=== PATIENT | male | born 1995 | race Caucasian/White ===

== ENCOUNTER 2018-12-30 00:32 | Emergency (ER) | payer BC, OTHER ==
[2018-12-30] MEDS ORDERED: Lidocaine 1% 10 ML MDV INJECT ONE (00:58)
[2018-12-30] MEDS ORDERED: Diphtheria,Pertussis(Acell),Tetanus Vaccine 0.5 ML Syringe IM ONE (00:58)
--- NOTE | 2018-12-30 01:05 | EDM.PDOC ---
ED HPI GENERAL MEDICAL PROBLEM - General Chief Complaint: Laceration Stated Complaint: left finger laceration Time Seen by Provider: 12/30/18 00:54 - History of Present Illness INITIAL COMMENTS - FREE TEXT/NARRATIVE: 23-year-old male presents emergency room with a little left hand injury. This occurred shortly before arrival. The patient was working with a car trailer that locks itself into place as it loads one of the locking pins caught his left pinky finger. He has a laceration to the side of the finger and limited range of motion. No other injuries associated with this event. He is uncertain when his last tetanus shot was. Left Finger-Little Pain Score (Numeric/FACES): 5 - Related Data Allergies Allergy/AdvReac Type Severity Reaction Status Date / Time No Known Allergies Allergy Verified 12/30/18 00:45 Home Meds: Home Meds cephALEXin [Keflex] 500 mg PO Q6H #28 cap 12/30/18 [Rx] Past Medical History - Past Surgical History Musculoskeletal Surgical History: Reports: ORIF Social & Family History - Tobacco Use Smoking Status *Q: Never Smoker - Caffeine Use Caffeine Use: Reports: Energy Drinks - Recreational Drug Use Recreational Drug Use: No ED ROS GENERAL - Review of Systems Review Of Systems: See Below Constitutional: Reports: No Symptoms HEENT: Reports: No Symptoms Respiratory: Reports: No Symptoms Cardiovascular: Reports: No Symptoms GI/Abdominal: Reports: No Symptoms Skin: Reports: No Symptoms Neurological: Reports: No Symptoms ED EXAM, SKIN/RASH Exam: See Below Exam Limited By: No Limitations General Appearance: Alert, No Apparent Distress Respiratory/Chest: No Respiratory Distress, Lungs Clear, Normal Breath Sounds Cardiovascular: Regular Rate, Rhythm, No Edema, No Murmur Extremities: Other (Examination of his left hand shows normal hand except for the pinky finger that has a ulnar aspect laceration along the side that goes from almost the flexor fold at the base of the digit to nearly the distal flexor fold. Vascular status appears to be intact sensation is blunted on ulnar aspect normal on the radial aspect. Flexion is limited mostly due to discomfort extension is intact at all levels.) ED SKIN PROCEDURES - Laceration/Wound Repair Left Digit - 5th (Baby) Appearance: Subcutaneous Distal NVT: Other (On the ulnar side of the finger the portion involved by the laceration sensation is diminished vascular status appears normal) Local Anesthesia - Lidocaine (Xylocaine): 1% Plain Local Anesthetic Volume: 2cc Skin Prep: Chlorhexidine (Hibiciens), Saline Exploration/Debridement/Repair: Wound Explored, In a Bloodless Field, Explored to Base Lac/Wound length In cm: 2 Suture Size: 4-0 # of Sutures: 8 Suture Type: Nylon Tetanus Status Addressed: Yes (Tetanus needed to be updated) Complications: Yes Complication Description: A portion of the skin was missing from a proximal two thirds of the laceration and the skin margins couldn't be brought completely together the patient is aware of this and this portion will need to heal with secondary intention. - Splinting Left 5th Digit Pre-Procedure NV Status: Normal Post-Procedure NV Status: Normal Splint Material: Aluminum-Foam Applied & Form Fitted By: Nurse Provider Post-Splint Application NV Check: NV Status Normal Complications: No Course - Vital Signs Last Recorded V/S: Last Vital Signs Temp 36.1 C 12/30/18 00:43 Pulse 63 12/30/18 00:43 Resp 16 12/30/18 00:43 BP 118/72 12/30/18 00:43 Pulse Ox 100 12/30/18 00:43 - Orders/Labs/Meds Orders: Active Orders 24 hr Category Date Time Status Vaccines to be Administered [RC] PER UNIT ROUTINE Care 12/30/18 00:58 Active Fingers Fifth Digit Lt F4 [CR] Stat Exams 12/30/18 00:57 Taken Meds: Medications Discontinued Medications Generic Name Dose Route Start Last Admin Trade Name Freq PRN Reason Stop Dose Admin Cephalexin 500 mg 12/30/18 01:19 Keflex PO 12/30/18 01:20 ONETIME ONE Diphtheria/Tetanus/Acell Pertussis 0.5 ml 12/30/18 00:58 12/30/18 01:20 Adacel IM 12/30/18 00:59 0.5 ml .ONCE ONE Administration Lidocaine HCl 10 ml 12/30/18 00:58 12/30/18 01:20 Xylocaine 1% INJECT 12/30/18 00:59 10 ml ONETIME ONE Administration - Re-Assessments/Exams Free Text/Narrative Re-Assessment/Exam: 12/30/18 01:40 X-ray examination shows no acute fracture dislocation. After his finger was anesthetized with 2 mL of 1% lidocaine in usual digital block fashion patient demonstrated intact flexor motion at all levels. Extension was also is intact all levels. A large portion of the skin on the proximal two thirds laceration avulsed from getting his finger caught. We did get reasonably well closure but some of the The patient will be started on Keflex Departure - Departure Time of Disposition: 01:48 Disposition: Home, Self-Care 01 Clinical Impression: Finger laceration - Discharge Information Prescriptions: cephALEXin [Keflex] 500 mg PO Q6H #28 cap Forms: ED Department Discharge Additional Instructions: Return to the emergency room with any questions problems or concerns of infection. Wear the splint for one week and then wear it for several days after the stitches have been removed. Take the antibiotics as directed keep the area absolutely clean and dry for the next 72 hours. After 72 hours she can let water gently run over the area no soaking. Gently dab dry. Follow-up with your regular physician at the end of this week for a wound check. You may do dressing changes twice daily or as needed use plenty of antibiotic ointment. - My Orders Last 24 Hours: My Active Orders 12/30/18 00:57 Fingers Fifth Digit Lt F4 [CR] Stat 12/30/18 00:58 Vaccines to be Administered [RC] PER UNIT ROUTINE - Assessment/Plan Last 24 Hours: My Active Orders 12/30/18 00:57 Fingers Fifth Digit Lt F4 [CR] Stat 12/30/18 00:58 Vaccines to be Administered [RC] PER UNIT ROUTINE
[2018-12-30] MEDS ORDERED: Cephalexin 500 MG Cap PO ONE (01:19)
--- NOTE | 2018-12-30 09:28 | CR ---
Right 5th finger: Three views centered to the right 5th finger were obtained. Comparison: No previous finger exam. Joint spaces are preserved. Soft tissue swelling is identified. Very minimal lucent line is noted within the corner base of the middle phalanx of the 5th digit which is felt to represent minimal avulsion fracture. No additional abnormality is appreciated. Impression: 1. Findings suspicious for minimal avulsion fracture involving the posterior corner base of the middle phalanx. 2. Soft tissue swelling. Diagnostic code #3
== END 2018-12-30 02:00 | disposition home or self-care (01) ==
LOC: JD.ED 00:32
DX: S61.217A Laceration without foreign body of left little finger without damage to nail, initial encounter (principal); Z23 Encounter for immunization; W23.1XXA Caught, crushed, jammed, or pinched between stationary objects, initial encounter
CPT/HCPCS: 12001; 73140; 90471; 90700; 99283; A9270; J2001

== ENCOUNTER 2021-11-24 18:32 | Emergency (ER) | payer SELFPAY | END 2021-11-24 19:55 | disposition left against medical advice (07) | LOC: JD.ED 18:32 | DX: Z53.21 Procedure and treatment not carried out due to patient leaving prior to being seen by health care provider (principal) ==